=== PATIENT | male | born 1990 | race Caucasian/White ===

== ENCOUNTER 2020-07-20 15:58 | Emergency (ER) | payer OTHER, SELFPAY ==
[2020-07-20 16:07] VITALS: BP 124/79; PULSE 77; RESP 16; TEMP 36.2; O2SAT 96; BMI 21.7
--- NOTE | 2020-07-20 17:46 | ED.RECABL ---
HPI - Recheck/Abnormal Lab/Rx General Chief Complaint: Recheck/Abnormal Lab/Rx Stated Complaint: Second dose Moderna Vax 07/14, adverse symptoms Time Seen by Provider: 07/20/20 17:41 Source: patient Mode of arrival: Ambulatory Limitations: no limitations History of Present Illness HPI narrative: This is a 29-year-old male comes with complaint of muscle aches. Patient received his Mcconnell vaccine on 07/14, developed fevers, muscle aches on generalized fatigue. He started to have some improvement but did have fevers most recently as 07/16. He has not had any additional fever since then continued to have some muscle aches but they have been improving he rates them at a 3/10. He states in general he is continuing to feel better over time. He denies any nasal congestion, no cold cough symptoms, no chest pain, no shortness of breath, no nausea, vomiting or other GI or urinary symptoms. He has not had any rash, itching or other anaphylactic type symptoms. He denies any other medical issues. Prior surgeries, no allergies to medications. Patient comes today as he was told by his command to be evaluated for clearance. He did ask specifically if they needed repeat COVID testing and he was told that they did not. Related Data Home Medications Medication Instructions Recorded Confirmed omeprazole 20 mg PO DAILY 07/20/20 07/20/20 Allergies Allergy/AdvReac Type Severity Reaction Status Date / Time No Known Drug Allergies Allergy Verified 07/20/20 16:11 Review of Systems Review of Systems ROS Unobtainable: All systems reviewed & are unremarkable except as noted in HPI and below Patient History Social History Smoking Status: Never smoker Smoking Status: Never smoker alcohol intake frequency: 0-2 drinks per day Substance Use Type: does not use Exam Narrative Exam Narrative: GENERAL: Alert and oriented x three, thin, well-appearing well-nourished nourished male in the no acute distress. HEENT: Head normocephalic, atraumatic, EOMI, pupils reactive, face symmetric, moist mucous membranes NECK: Supple, full range of motion CARDIOVASCULAR: Regular rate and rhythm without murmurs, rubs or gallops. RESPIRATORY: Breath sounds equal bilaterally, no wheezes rales or rhonchi. ABDOMEN: Soft, nontender. Normoactive bowel sounds all 4 quadrants. No guarding or rebound, rigidity, no mass : No CVA tenderness EXTREMITIES: Normal range of motion, no clubbing or edema. Neurovascularly intact NEUROLOGICAL: Cranial nerves II through XII grossly intact. Moving all extremities SKIN: Warm, dry, no petechiae, no rashes or lesions. Initial Vital Signs Initial Vital Signs: Vital Signs Temperature 97.2 F L 07/20/20 16:07 Pulse Rate 77 07/20/20 16:07 Respiratory Rate 16 07/20/20 16:07 Blood Pressure 124/79 07/20/20 16:07 Pulse Oximetry 96 07/20/20 16:07 Course Vital Signs Vital signs: Vital Signs - 8 hr 07/20/20 16:07 Temperature 97.2 F L Pulse Rate 77 Respiratory Rate 16 Blood Pressure 124/79 Pulse Oximetry 96 MDM - Recheck/Abnormal Lab/Rx MDM Narrative Medical decision making narrative: Patient appears to have a reaction to moderna vaccine that is mildly prolonged. Patient continues to improve. Sent by [facility] for medical clearance. Discharge Plan Departure Patient Disposition: Home Clinical Impression: Vaccine reaction Activity Restrictions/Additional Instructions: Your symptoms today are expected with your moderna vaccine, in some individuals they can last several days. You may return to work if you feel comfortable doing so and your symptoms continue to improve. If your symptoms are progressing or worsening or have resolved and then return I would recommend repeat evaluation as that may not be a vaccine reaction. Continue with tylenol up to a 1000 mg every 8 hours as needed for pain and or ibuprofen up to 800 mg every hours as needed for muscle aches Return for evaluation with her primary care provider or the emergency department if you have recurrent fevers greater 100.4 F, rapidly worsening symptoms, severe headaches, vision changes, new chest pain, shortness of breath, persistent vomiting, new rashes, itching or other new or concerning symptoms. Prescriptions: No Action omeprazole 20 mg capsule,delayed release(DR/EC) 20 mg PO DAILY RF: 0
[2020-07-20 18:01] VITALS: BP 120/64; PULSE 68; RESP 12; O2SAT 100
== END 2020-07-20 18:01 | disposition home or self-care (01) ==
PROVIDERS: Emergency Provider Emergency Medicine
DX: M79.10 Myalgia, unspecified site (principal); R53.83 Other fatigue; T50.Z95A Adverse effect of other vaccines and biological substances, initial encounter
CPT/HCPCS: 99281

== ENCOUNTER → 2022-01-04 19:07 | Outpatient (CLI) | payer OTHER, SELFPAY ==
--- NOTE | 2022-01-04 | DI.MRI.S_ITS ---
PROCEDURE: MR WRIST RT WO CON INDICATIONS: pain in right wrist TECHNIQUE: Noncontrast coronal proton density fast spin echo and T2 fast spin echo with fat saturation; coronal 3-D gradient echo, axial T1 spin echo and T2 fast spin echo with fat saturation, sagittal T1 spin echo through the wrist. COMPARISON: None. FINDINGS: Image quality: Excellent. Bones and cartilage: Very mild osseous edema is seen at the distal ulnar fovea, which may be reactive or related to ligamentous traction versus less likely a direct contusion. No acute osseous fracture. The carpal bones are normally aligned. No evidence for avascular necrosis. Mild joint space narrowing is seen at the triscaphe joint. Carpal ligaments: The scapholunate and lunotriquetral ligaments appear intact. On sagittal images, the pisohamate ligament appears intact. Triangular fibrocartilage complex: Mildly increased signal is seen within the ulnar foveal attachment of the triangular fibrocartilage. The central disc is intact. The radial attachments appear to be intact. There is trace fluid within the distal radial ulnar joint. Tendons and soft tissues: The carpal tunnel structures appear normal, including the median nerve. The ulnar nerve appears normal within Guyon's canal. Mild tendinosis of the extensor carpi ulnaris tendon is seen. The remaining extensor tendon compartments demonstrate normal morphology, without pathologic tendon sheath fluid. Small ganglion cyst at the volar radial aspect of the wrist measures 6 x 5 x 2 mm. IMPRESSION: 1. Increased signal within the ulnar foveal attachment of the triangular fibrocartilage is suspicious for partial tearing. Adjacent osseous edema at the distal ulna is most likely reactive. No definite full-thickness tear is seen. The ulnar styloid attachment is grossly intact. 2. Mild extensor carpi ulnaris tendinosis. 3. Small lobular ganglion cyst at the volar radial aspect of the wrist measuring up to 6 mm. Dictated by: Anibal Chatterjee M.D. on 01/05/2022 at 8:44 Approved by: Anibal Chatterjee M.D. on 01/05/2022 at 8:51
== END ==
DX: M67.431 Ganglion, right wrist (principal); M25.531 Pain in right wrist
CPT/HCPCS: 73221